=== PATIENT | female | born 1985 | race Caucasian/White ===

== ENCOUNTER → 2016-07-02 | Outpatient (CLI) | payer OTHER ==
--- NOTE | 2016-07-02 13:12 | MAMMOGRAPHY REPORT ---
UNILATERAL LEFT DIGITAL DIAGNOSTIC MAMMOGRAM WITH CAD AND TARGETED LEFT ULTRASOUND: 07/02/2016 CLINICAL HISTORY: The patient reports left upper inner quadrant breast pain for approximately 4-6 we eks, which is intermittent. She denies any palpable lumps. She reports a family history of breast cancer in her mother who was diagnosed at age 32 while . TECHNIQUE: Current study was also evaluated with a Computer Aided Detection (CAD) system. Left CC and MLO views including implant displaced views were obtained. COMPARISON: No prior exams were available for comparison. BREAST COMPOSITION: The tissue of the left breast is extremely dense, which lowers the sensitivity of mammography. FINDINGS: A triangle marker yip the site of pain in the left medial breast. There are no suspici ous masses, calcifications, or areas of architectural distortion noted within the left breast. A alvarez bpectoral silicone implant is noted. Targeted ultrasound was performed of the area of pain pointed out by the patient, extending from the 9 to 12:00 region in the left breast. In the left breast at 11:00, 3 cm from the nipple, there is an oval anechoic circumscribed mass which measures 5 mm and is consistent with a benign simple cyst. In the left breast at 10:00 periareolar region, there is an oval circumscribed hypoechoic mass whi ch measures 4 x 3 x 5 mm. A similar appearing hypoechoic round circumscribed mass which measures 3 x 3 x 3 mm is also seen within the left breast at 10:00, 37 m from the nipple. The hypoechoic yuliet s are probably benign and may represent complicated cyst versus solid masses such as fibroadenomas. No suspicious masses were evident. IMPRESSION: ACR-BI-RADS CATEGORY 3: PROBABLY BENIGN, TARGETED ULTRASOUND ACR-BI-RADS CATEGORY 3: NM OBABLY BENIGN 1. Two hypoechoic 5 and 3 mm masses in the left breast at 10:00 on ultrasound, which are probably b enign and may represent complicated cysts versus solid masses such as fibroadenomas. Recommend foll ow-up diagnostic mammograms and ultrasound of the left breast in 6 months to confirm stability. Als o recommend clinical follow-up for left breast pain. 2. The patient has a history of mother diagnosed with breast cancer at age 32. Therefore, starting yearly screening mammography should be considered at this time. At the time of the six-month follo w-up, routine screening mammograms of the right breast could also be obtained. Additionally, given the strong family history of breast cancer, the patient may qualify for yearly screening breast MRI in addition to yearly mammography if her lifetime risk of breast cancer is greater than 20%. The patient has been verbally notified of the results. Approximately 10% of breast cancers are not detected with mammography. A negative mammographic repor t should not delay biopsy if a clinically suggestive mass is present. Jamee Brian M.D. ah/:07/02/2016 09:12:35 User Experience Designer: Mandy MOTTA(Clark)(M), [facility] letter sent: Follow Up Recommended 3 BI-RADS Code: ACR-BI-RADS Category 3: Probably Benign Ultrasound BI-RADS: ACR-BI-RADS Category 3: P robably Benign
== END | disposition home or self-care (01) ==
LOC: C.MAMM 07:59
PROVIDERS: ATTEND Family Medicine
DX: N64.4 Mastodynia (principal); N63 Unspecified lump in breast; Z80.3 Family history of malignant neoplasm of breast

== ENCOUNTER → 2016-07-28 | Outpatient (CLI) | payer OTHER ==
[2016-07-30 20:51] LABS: CHLAMYDIA TRACH RNA*** NOT DETECTED (NOT DETECTED); GC (NEIS GONORRHOEAE)RNA** NOT DETECTED (NOT DETECTED)
== END | disposition home or self-care (01) ==
LOC: C.LABSPEC 17:30
PROVIDERS: ATTEND Physician Assistant
DX: Z30.430 Encounter for insertion of intrauterine contraceptive device (principal)

== ENCOUNTER → 2017-01-04 | Outpatient (CLI) | payer OTHER ==
--- NOTE | 2017-01-04 14:31 | MAMMOGRAPHY REPORT ---
BILATERAL DIGITAL DIAGNOSTIC MAMMOGRAM TOMOSYNTHESIS WITH CAD AND TARGETED LEFT ULTRASOUND: 7 CLINICAL HISTORY: Six-month follow-up of left breast masses. Family history of breast cancer in her mother who was diagnosed at age 32 while . The left breast pain the patient was previously s een for June 2016 has improved. She denies any palpable lumps or other new complaints. TECHNIQUE: Breast tomosynthesis in addition to standard 2D mammography was performed. Current study was also evaluated with a Computer Aided Detection (CAD) system. Bilateral CC and MLO 2-D and tomosy nthesis images including implant displaced views were obtained. Tomosynthesis images were obtained o f the implant displaced views only. COMPARISON: Comparison is made to exams dated: 07/02/2016 ultrasound and 07/02/2016 mammogram - [facility]. BREAST COMPOSITION: The tissue of both breasts is extremely dense, which lowers the sensitivity of m ammography. FINDINGS: There are no suspicious masses, calcifications, or areas of architectural distortion noted in either breast mammographically. Bilateral subpectoral silicone implants are noted. Targeted ultrasound was performed of the area of the previously seen left breast masses. In the left breast at 10:00 periareolar region, again noted is an oval circumscribed slightly hypoechoic mass wh ich measures 4 x 3 x 5 mm. The mass is stable in size and appearance compared to the June 2016 exam. In the left breast at 10:00, 3 cm from the nipple, there is a similar-appearing hypoechoic mass which measures 4 x 3 x 4 mm. When accounting for differences in measurement technique, the mass is stable in size and appearance compared to the June 2016 exam. The masses are probably benign and may repres ent complicated cysts versus solid masses such as fibroadenomas. IMPRESSION: ACR-BI-RADS CATEGORY 3: PROBABLY BENIGN, TARGETED ULTRASOUND ACR-BI-RADS CATEGORY 3: PRO BABLY BENIGN 1. Two small hypoechoic masses in the left 10:00 breast on ultrasound are stable compared to the June 2016 exam and are probably benign. Recommend short interval follow-up targeted ultrasound of the lef t breast in 6 months to confirm longer stability. 2. No mammographic evidence of malignancy in either breast. Recommend routine bilateral screening m ammograms in one year, given the family history of breast cancer with her mother diagnosed in her 30s . The patient has been verbally notified of the results. Approximately 10% of breast cancers are not detected with mammography. A negative mammographic report should not delay biopsy if a clinically suggestive mass is present. Jamee Brian M.D. ah/:01/04/2017 12:17:52 Licensed Aircraft Maintenance Engineer: Selene BRANTLEY)(Lilian), [facility] letter sent: Follow Up Recommended 3 BI-RADS Code: ACR-BI-RADS Category 3: Probably Benign Ultrasound BI-RADS: ACR-BI-RADS Category 3: Pr obably Benign
== END | disposition home or self-care (01) ==
LOC: C.MAMM 07:55
PROVIDERS: ATTEND Nurse Practitioner Family
DX: N63.20 Unspecified lump in the left breast, unspecified quadrant (principal); Z80.3 Family history of malignant neoplasm of breast